=== PATIENT | male | born 1980 | race Hispanic/Latino ===

== ENCOUNTER → 2025-02-14 11:18 | Outpatient (CLI) | payer OTHER, SELFPAY ==
--- NOTE | 2025-02-14 | DI.RAD.S_ITS ---
PROCEDURE: XR CHEST 2V INDICATIONS: SOB TECHNIQUE: 2 views of the chest were acquired. COMPARISON: None. FINDINGS: Surgical changes and devices: None. Lungs and pleura: Lungs are clear. No pleural effusions or pneumothorax. Mediastinum: Mediastinal contours are normal. Heart size is normal. Bones and chest wall: No suspicious bony abnormalities. Soft tissues appear unremarkable. IMPRESSION: No acute cardiopulmonary abnormality is seen. Dictated by: Shahab Lynch M.D. on 02/14/2025 at 21:18 Approved by: Shahab Lynch M.D. on 02/14/2025 at 21:19
== END ==
PROVIDERS: Referring Provider Chiropractor; Visit Provider Chiropractor
DX: R06.02 Shortness of breath (principal)
CPT/HCPCS: 71046; 94060